=== PATIENT | male | born 1990 | race Caucasian/White ===

== ENCOUNTER → 2019-03-09 | Outpatient (CLI) | payer BC ==
--- NOTE | 2019-03-09 15:17 | US ---
EXAMINATION TYPE: US thyroid st tissue head/neck DATE OF EXAM: 03/09/2019 COMPARISON: NONE CLINICAL HISTORY: E05.90 THYROTOXICOSIS. GLAND SIZE: Right Lobe: 4.7 x 1.8 x 1.4 cm Overall Parenchyma: homogenous Left Lobe: 4.9 x 1.9 x 1.4 cm Overall Parenchyma: homogeneous Isthmus Thickness: 0.3 cm NODULES RIGHT: # of nodules measured on right: 0 LEFT: # of nodules measured on left: 0 ISTHMUS: # of nodules measured in the isthmus: 0 Bilateral neck scanned, no evidence of lymphadenopathy. IMPRESSION: Normal thyroid ultrasound
== END ==
LOC: RADUSWWP 14:49
PROVIDERS: ATTEND Family Medicine
DX: E05.90 Thyrotoxicosis, unspecified without thyrotoxic crisis or storm (principal)
CPT/HCPCS: 76536

== ENCOUNTER → 2022-02-21 | Outpatient (CLI) | payer BC ==
--- NOTE | 2022-02-21 08:34 | US ---
EXAMINATION TYPE: US abdomen limited DATE OF EXAM: 02/21/2022 COMPARISON: NONE CLINICAL HISTORY: R10.9 ABDOMINAL PAIN. Epigastric abdomen pain EXAM MEASUREMENTS: Liver Length: 13.8 cm Gallbladder Wall: 0.2 cm CBD: 0.3 cm Right Kidney: 12.8 x 4.8 x 5.2 cm Pancreas: wnl in its visualized portions Liver: wnl Gallbladder: wnl Evidence for sonographic Ferrer's sign: no CBD: wnl Right Kidney: wnl IMPRESSION: No significant abnormality is evident on this limited exam
== END | disposition home or self-care (01) ==
LOC: RADUSWWP 07:37
PROVIDERS: ATTEND Family Medicine
DX: R10.9 Unspecified abdominal pain (principal)
CPT/HCPCS: 76705